=== PATIENT | female | born 1975 | race Caucasian/White ===

== ENCOUNTER 2025-05-04 11:09 | Inpatient (IN) | payer OTHER ==
[~2025-05-04] VITALS: Ht 170.2 cm; Wt 60.3 kg
[~2025-05-04 11:09] MED LIST: Norco 5-325 Ta1 EACH PO; Zofran Odt4 MG PO
[2025-05-04 11:28] LABS: Source, Urine Clean Catch
[2025-05-04 11:33] LABS: Bilirubin, Urine Neg (Neg); Color, Urine Yellow (P-Yellow); Glucose Qualitative, Urine Neg (Neg); Ketones, Urine Neg (Neg); Leukocyte Esterase, Urine Neg (Neg); Protein, Urine Neg (Neg); Specific Gravity, Urine 1.025 (1.003-1.022); Urobilinogen, Urine NORM (Normal)
[2025-05-04] MEDS ORDERED: Morphine Sulfate 4 MG/1 ML Injection IV ONE (11:50)
[2025-05-04] MEDS ORDERED: NS 1,000 ML IV SCH ×2 (11:50→15:00)
[2025-05-04] MEDS ORDERED: Ketorolac Tromethamine 30mg Vial IV ONE (11:50)
[2025-05-04 12:00] LABS: BASOPHILS ABSOLUTE AUTO 0.13 K/mm3 (0.00-0.23); BASOPHILS PERCENT AUTO 1 % (0-2); EOSINOPHILS ABSOLUTE AUTO 0.23 K/mm3 (0.00-0.68); EOSINOPHILS PERCENT AUTO 1 % (0-6); Hematocrit 40.1 % (33.0-51.0); Hemoglobin 13.1 g/dL (11.5-16.0); IMMATURE GRAN ABSOLUTE AUTO 0.07 K/mm3 (0.00-0.10); IMMATURE GRAN PERCENT AUTO 0 % (0-1); LYMPHOCYTES ABSOLUTE AUTO 2.47 K/mm3 (0.84-5.20); LYMPHOCYTES PERCENT AUTO 14 % (21-46); MONOCYTES ABSOLUTE AUTO 0.81 K/mm3 (0.16-1.47); MONOCYTES PERCENT AUTO 5 % (4-13); Mean Corpuscular HGB Conc 32.7 g/dL (31.5-36.5); Mean Corpuscular Volume 91 fL (80-100); NEUTROPHILS ABSOLUTE AUTO 13.48 K/mm3 (1.96-9.15); NEUTROPHILS PERCENT AUTO 78 % (41-73); NRBC ABSOLUTE 0.00 K/mm3 (0.00-0.02); NRBC Auto 0.0 /100 WBC (0.0-0.2); Platelet Count 301 K/mm3 (150-400); RDW Coefficient Variation 15.2 % (11.7-14.2); RDW Standard Deviation 50.8 fL (35.1-46.3)
[2025-05-04] MEDS ORDERED: CefTRIAXone Sodium 1,000 MG in NS 100 ML IV ONE ×2 (12:05→14:40)
[2025-05-04 12:15] LABS: Alanine Aminotransfer (ALT/SGP 56.0 U/L (12-78); Albumin, Blood 3.9 g/dL (3.4-5.0); Albumin/Globulin Ratio 0.9 (0.8-1.8); Anion Gap 9.0 mmol/L (3-11); Aspartate Aminotrans (AST/SGOT 45.0 U/L (12-37); Bilirubin, Total 0.5 mg/dL (0.1-1.0); Blood Urea Nitrogen 16.0 mg/dL (8-24); CO2, Blood 24.0 mmol/L (21-32); Calcium, Blood 9.0 mg/dL (8.5-10.1); Chloride, Blood 106.0 mmol/L (98-108); Creatinine, Blood 1.11 mg/dL (0.40-1.00); Globulin, Blood 4.2 g/dL (2.2-4.0); Glucose, Blood 96.0 mg/dL (70-99); Potassium, Blood 3.8 mmol/L (3.5-5.5); Sodium, Blood 135.0 mmol/L (136-145); Total Protein, Blood 8.1 g/dL (6.4-8.2)
[2025-05-04] MEDS ORDERED: FLU VACC TS2025-26(6MOS UP)/PF 45 MCG/0.5 ML SYRINGE IM SCH (14:30)
[2025-05-04] MEDS ORDERED: NS 1,000 ML IV ONE (15:05)
--- NOTE | 2025-05-04 18:14 | NUR ---
ADMISSION NOTE/SHIFT SUMMARY PATIENT A/OX4, ABLE TO MAKE NEEDS KNOWN. PLEASANT AND COOPERATIVE WITH CARE. STAND BY ASSIST IN ROOM. IV FLUIDS RUNNING PER MAR. ADMISSION ASSESSMENT COMPLETED. PATIENT AANBEL ANY HOME MEDICATIONS. URINE SPECIMEN NEEDED, PATIENT HAS NOT VOIDED SINCE ADMISSION. PATIENT COMPLAINING OF ABDOMINAL/FLANK PAIN, MD NOTIFIED AND NEW ORDER RECIEVED FOR PAIN MEDICATION, ADMISNISTERED PER MAR. PATIENT'S SISTER AND BROTHER IN LAW AT BEDSIDE CURRENTLY. ORIENTED TO ROOM AND CALL LIGHT SYSTEM. ECHOCARDIOGRAM COMPLETED UPON ARRIVAL TO ROOM 355. TELEMETRY IN PLACE, SINUS RHYTHYM 80s. NO OTHER CONCERNS AT THIS TIME, WILL CONTINUE TO MONITOR.
[2025-05-04] MEDS ORDERED: OxyCODONE 5 mg/Acetamin 325 mg TABLET PO PRN (18:15)
[2025-05-04] MEDS ORDERED: Ondansetron HCl 2 MG / ML 2ML Vial IV PRN (18:30)
[2025-05-04 19:21] VITALS: BP 139/84
[2025-05-04] MEDS ORDERED: Lactobacil 2-S.Thermo-Bifido 1 1 Cap PO SCH (21:00)
[2025-05-04 23:25] VITALS: BP 109/64
[2025-05-05 01:52] LABS: U Amphetamine Screen Not Detected; U Barbiturate Screen Not Detected; U Benzodiazapine Screen Not Detected; U Buprenorphine Screen Not Detected; U Cannabinoids Screen Not Detected; U Cocaine Screen Not Detected; U Methadone Screen Not Detected; U Methamphetamine Screen Not Detected; U Opiates Screen DETECTED; U Oxycodone Screen DETECTED; U Phencyclidine Screen Not Detected
[2025-05-05 03:53] VITALS: BP 104/76
[2025-05-05 04:32] LABS: BASOPHILS ABSOLUTE AUTO 0.08 K/mm3 (0.00-0.23); BASOPHILS PERCENT AUTO 1 % (0-2); EOSINOPHILS ABSOLUTE AUTO 0.13 K/mm3 (0.00-0.68); EOSINOPHILS PERCENT AUTO 1 % (0-6); Hematocrit 32.9 % (33.0-51.0); Hemoglobin 10.7 g/dL (11.5-16.0); IMMATURE GRAN ABSOLUTE AUTO 0.05 K/mm3 (0.00-0.10); IMMATURE GRAN PERCENT AUTO 1 % (0-1); LYMPHOCYTES ABSOLUTE AUTO 1.68 K/mm3 (0.84-5.20); LYMPHOCYTES PERCENT AUTO 16 % (21-46); MONOCYTES ABSOLUTE AUTO 0.68 K/mm3 (0.16-1.47); MONOCYTES PERCENT AUTO 7 % (4-13); Mean Corpuscular HGB Conc 32.5 g/dL (31.5-36.5); Mean Corpuscular Volume 92 fL (80-100); NEUTROPHILS ABSOLUTE AUTO 7.62 K/mm3 (1.96-9.15); NEUTROPHILS PERCENT AUTO 74 % (41-73); NRBC ABSOLUTE 0.00 K/mm3 (0.00-0.02); NRBC Auto 0.0 /100 WBC (0.0-0.2); Platelet Count 242 K/mm3 (150-400); RDW Coefficient Variation 15.5 % (11.7-14.2); RDW Standard Deviation 52.5 fL (35.1-46.3)
--- NOTE | 2025-05-05 04:47 | NUR ---
SHIFT SUMMARY ADMITTED FOR PYELEONEPHRITIS. FULL CODE. IV ANTIB RX ARE SCHEDULED. NAUSEA AND PAIN RX GIVEN THIS SHIFT. TELEMETRY: NSR @ 99 BPM. REGULAR DIET. ON RA. A&0 X4. INDEPENDENT. NO NEW CONCERNS THIS SHIFT.
[2025-05-05 05:02] LABS: Anion Gap 8.0 mmol/L (3-11); Blood Urea Nitrogen 13.0 mg/dL (8-24); CO2, Blood 24.0 mmol/L (21-32); Calcium, Blood 8.1 mg/dL (8.5-10.1); Chloride, Blood 108.0 mmol/L (98-108); Creatinine, Blood 1.15 mg/dL (0.40-1.00); Glucose, Blood 117.0 mg/dL (70-99); Potassium, Blood 3.9 mmol/L (3.5-5.5); Sodium, Blood 136.0 mmol/L (136-145)
[2025-05-05 07:39] VITALS: BP 99/71
[2025-05-05] MEDS ORDERED: NS 1,000 ML IV ONE (08:00)
[2025-05-05] MEDS ORDERED: Enoxaparin 40 MG/0.4 ML SYR SC SCH (09:00)
[2025-05-05] MEDS ORDERED: HYDROcodone 5-APAP 325 TAB PO PRN (10:35)
[2025-05-05 11:23] VITALS: BP 106/72
[2025-05-05] MEDS ORDERED: CefTRIAXone Sodium 2,000 MG in NS 100 ML IV SCH (12:00)
[2025-05-05 15:41] VITALS: BP 101/62
--- NOTE | 2025-05-05 17:17 | NUR ---
End of shift summary: Patient is alert and oriented x4; pleasant and cooperative with care. Patient is independent in room and will call if assistance is needed. Patient with continued pain and medications changed and administered per order. Denies CP or pressure, N/V/D, SOB today. ALl medications administered per EMAR. No acute changes this shift. Call light within reach, bed in lowest position. Will continue to monitor until next shift nurse arrives and report is given.
[2025-05-05 20:07] VITALS: BP 131/73
[2025-05-05] MEDS ORDERED: Docusate Sodium Liquid 100 MG UDC PO SCH (23:40)
--- NOTE | 2025-05-05 23:42 | NUR ---
ASSUMED CARE OF PATIENT AT APROX 2300 / HOSPITALIST CONTACT PT REPORTS FEELING ANXIOUS. PT EXPRESSED FRUSTRATION THAT PREVIOUS NURSE WAITED TOO LONG FOR PAIN MEDS AND NOT RESPONDING TO PT'S NEED. PT STATED SHE IS A DAILY SMOKER AND HAVING ANXIETY ATTACK. PT HAS HX OF ANXIETY SINCE HER DAUGHTER IN MVA IN 2018. PT REQUESTING MARJORIE PATCH FOR REPLACEMENT AND SOMETHING FOR ANXIETY. PT HAS NOT HAD A BM FOR SEVERAL DAYS. CALL TO HOSPITALIST, SPOKE TO KATHERIN. NEW ORDERS FOR 21G MARJORIE PATCH DAILY START NOW, DOCUSATE SODIUM 100MG START NOW, MIRALAX ONCE DAILY, AND 50MG HYDROXAZINE ONE TIME NOW. PROVIDED THERAPEUTIC LISTENING WITH PATIENT. ENCOURAGED PT TO CALL FOR NEEDS. EDUCATED PT ON Q4 ORDER FOR PAIN MEDS AND WHEN NEXT MEDICATION COULD BE GIVEN.
[2025-05-06 00:29] VITALS: BP 116/73
--- NOTE | 2025-05-06 02:37 | NUR ---
AT APPROX 2014, AUTHOR WAS ALERTED BY MEDICAL CLERICAL ASSISTANT OF PT'S REQUEST FOR PAIN MEDICATION. AUTHOR WAS IN THE PROCESS OF COMPLETING ADMISSION PROCESS FOR ANOTHER PT, INCLUDING, BUT NOT LIMITED TO, ADMISSION ASSESSMENT AND MULTIPLE BED CHANGES, PT WAS ASKED TO WAIT A BIT AND WAS INFORMED OF THE CURRENT SITUATION BY THE MEDICAL CLERICAL ASSISTANT. UPON RETURN, PT STATED WAS "INCOMPETENT" AND EXPRESSED FRUSTRATION AT THE WAIT. ATTEMPTED THERAPEUTIC COMMUNICATION AND OFFERED APOLOGY OVER CURRENT SITUATION, BUT WAS TOLD BY PT SHE WANTED TO LEAVE [facility]. PAIN MEDS ULTIMATELY ADMIN BY [facility] RN AND PT VOICED AGREEMENT TO STAY TO [facility] RN. AT APPROX 2229, RESPONDED TO PAIN MED REQUEST CALL LIGHT AND WAS TOLD BY PT THAT SHE WANTED ANOTHER RN. PHYSICIAN OBSTETRICIAN NOTIFIED. REPORT GIVEN AND PT HANDED OFF TO SOLEDAD MITCHELL.
[2025-05-06 04:07] VITALS: BP 112/67
--- NOTE | 2025-05-06 04:29 | NUR ---
END OF SHIFT SUMMARY SEE PREVIOUS NURSE NOTES. PT HAS BEEN RESTING. ABD/BACK/FLANK PAIN ALLIEVIATED WITH MEDS PER SEP. PT REPORTED IMPROVED ANXIETY FEELING AFTER HYDROXAZINE. PT CALL LIGHT ACCESSIBLE AND MAKING NEEDS KNOWN. CARE WILL CONTINUE UNTIL REPORT GIVEN TO ONCOMING NURSE.
[2025-05-06 05:24] LABS: BASOPHILS ABSOLUTE AUTO 0.07 K/mm3 (0.00-0.23); BASOPHILS PERCENT AUTO 1 % (0-2); EOSINOPHILS ABSOLUTE AUTO 0.25 K/mm3 (0.00-0.68); EOSINOPHILS PERCENT AUTO 3 % (0-6); Hematocrit 32.0 % (33.0-51.0); Hemoglobin 10.7 g/dL (11.5-16.0); IMMATURE GRAN ABSOLUTE AUTO 0.04 K/mm3 (0.00-0.10); IMMATURE GRAN PERCENT AUTO 0 % (0-1); LYMPHOCYTES ABSOLUTE AUTO 1.73 K/mm3 (0.84-5.20); LYMPHOCYTES PERCENT AUTO 19 % (21-46); MONOCYTES ABSOLUTE AUTO 0.66 K/mm3 (0.16-1.47); MONOCYTES PERCENT AUTO 7 % (4-13); Mean Corpuscular HGB Conc 33.4 g/dL (31.5-36.5); Mean Corpuscular Volume 93 fL (80-100); NEUTROPHILS ABSOLUTE AUTO 6.58 K/mm3 (1.96-9.15); NEUTROPHILS PERCENT AUTO 71 % (41-73); NRBC ABSOLUTE 0.00 K/mm3 (0.00-0.02); NRBC Auto 0.0 /100 WBC (0.0-0.2); Platelet Count 243 K/mm3 (150-400); RDW Coefficient Variation 15.4 % (11.7-14.2); RDW Standard Deviation 52.2 fL (35.1-46.3)
[2025-05-06 05:55] LABS: Alanine Aminotransfer (ALT/SGP 322.0 U/L (12-78); Albumin, Blood 2.9 g/dL (3.4-5.0); Albumin/Globulin Ratio 0.8 (0.8-1.8); Anion Gap 7.0 mmol/L (3-11); Aspartate Aminotrans (AST/SGOT 279.0 U/L (12-37); Bilirubin, Total 0.3 mg/dL (0.1-1.0); Blood Urea Nitrogen 9.0 mg/dL (8-24); CO2, Blood 24.0 mmol/L (21-32); Calcium, Blood 8.4 mg/dL (8.5-10.1); Chloride, Blood 109.0 mmol/L (98-108); Creatinine, Blood 1.08 mg/dL (0.40-1.00); Globulin, Blood 3.8 g/dL (2.2-4.0); Glucose, Blood 118.0 mg/dL (70-99); Potassium, Blood 3.8 mmol/L (3.5-5.5); Sodium, Blood 136.0 mmol/L (136-145); Total Protein, Blood 6.7 g/dL (6.4-8.2)
[2025-05-06 08:22] VITALS: BP 121/85
[2025-05-06] MEDS ORDERED: Polyethylene Glycol 3350 17 gm PO SCH (09:00)
[2025-05-06] MEDS ORDERED: AMOCLA875 PO (10:21)
[2025-05-06] MEDS ORDERED: Norco 5-325 Ta1 EACH PO (10:22)
[2025-05-06] MEDS ORDERED: EUTHYROX88 MCG PO (10:23)
[2025-05-06] MEDS ORDERED: NICO21TP TOP (10:23)
[2025-05-06] MEDS ORDERED: VISBIOME 112.51 EACH PO (10:24)
--- NOTE | 2025-05-06 12:53 | NUR ---
Patient discharged home today. New medication orders faxed to [facility] per patient preference. All belongings bagged and in patient possession at time of discharge. Education/instructions discussed with patient prior to leaving. IV to left wrist removed with tip intact and no s/s of swelling or c/o pain/tenderness. Patient walked self to front entrance.
== END 2025-05-06 12:42 | disposition home or self-care (01) | DRG 872 ==
LOC: ER 11:09 → MEDS 11:10
PROVIDERS: Emergency Medicine; ADMIT Student in an Organized Health Care Education/Training Program
DX: A41.51 Sepsis due to Escherichia coli [E. coli] (principal); N12 Tubulo-interstitial nephritis, not specified as acute or chronic; E87.1 Hypo-osmolality and hyponatremia; I47.10 Supraventricular tachycardia, unspecified; N39.0 Urinary tract infection, site not specified; E03.9 Hypothyroidism, unspecified; F17.210 Nicotine dependence, cigarettes, uncomplicated; Z90.89 Acquired absence of other organs; Z90.49 Acquired absence of other specified parts of digestive tract; Z98.890 Other specified postprocedural states; Z79.899 Other long term (current) drug therapy
CPT/HCPCS: 36415; 74177; 80048; 80053; 81001; 83605; 83735; 84439; 84443; 85025; 87077; 87086; 87186; 93005; 93010; 93306; 96361; 96365; 96366; 96372; 96375; 96376; 99285-25; A9270; G0378; J0696; J1650; J1885; J2270; J2405; J7030; Q9967